=== PATIENT | male | born 1975 | race Caucasian/White ===

== ENCOUNTER → 2021-03-17 | Outpatient (CLI) | payer OTHER ==
[2021-03-17 14:01] LABS: HEMOGLOBIN 15.4 gm/dl (14.0-17.5); RED BLOOD COUNT 5.28 M/UL (4.20-5.50); WHITE BLOOD COUNT 3.5 K/UL (4.5-11.0)
[2021-03-17 14:13] LABS: BUN/CREATININE RATIO 21 (0-10)
[2021-03-18 08:14] LABS: COMPLEMENT C3, SERUM 121 mg/dL (82-167); COMPLEMENT C4, SERUM 18 mg/dL (12-38); RHEUMATOID ARTHRITIS FACTOR <10.0 IU/mL (0.0-13.9)
[2021-03-18 10:14] LABS: HCV AB <0.1 (0.0-0.9)
[2021-03-18 12:14] LABS: HBSAG SCREEN Negative (Negative); HEP B CORE AB, TOT Negative (Negative)
[2021-03-18 14:14] LABS: ANGIOTENSIN-CONVERTING ENZYME 24 U/L (14-82)
== END ==
LOC: LAB 12:21
PROVIDERS: Internal Medicine
DX: M06.4 Inflammatory polyarthropathy (principal); R53.83 Other fatigue; L98.9 Disorder of the skin and subcutaneous tissue, unspecified; Z79.899 Other long term (current) drug therapy
CPT/HCPCS: 80053; 82164; 82728; 83520; 85025; 85652; 86140; 86160; 86200; 86431; 86704; 86803; 87340